=== PATIENT | female | born 1990 | race Two or more races ===

== ENCOUNTER 2018-09-20 06:10 | Emergency (ER) | payer SELFPAY ==
[2018-09-20 08:16] VITALS: BP 120/77
[2018-09-20 08:50] LABS: APPEARANCE,URINE SLIGHTLY-CLOUDY; BILIRUBIN,URINE NEGATIVE (NEGATIVE); COLOR,URINE YELLOW; GLUCOSE, URINE NEGATIVE (NEGATIVE); KETONES,URINE NEGATIVE (NEGATIVE); LEUKOCYTE ESTERASE,URINE NEGATIVE (NEGATIVE); NITRITE,URINE NEGATIVE (NEGATIVE); PROTEIN,URINE NEGATIVE (NEGATIVE); URINE SPECIFIC GRAVITY 1.029; UROBILINOGEN,URINE NEGATIVE mg/dL (<2.0)
[2018-09-20 08:54] LABS: ABSOLUTE BASOPHILS # (AUTO) 0.1 10^3/uL (0.0-0.2); ABSOLUTE EOSINOPHILS # (AUTO) 0.1 10^3/uL (0.0-0.6); ABSOLUTE LYMPHOCYTES (AUTO) 3.1 10^3/uL (0.5-4.7); ABSOLUTE MONOCYTES (AUTO) 0.8 10^3/uL (0.1-1.4); ABSOLUTE NEUT (AUTO) 5.5 10^3/uL (1.7-8.2); BASOPHILS % (AUTO) 0.9 % (0-2); EOSINOPHILS % (AUTO) 0.6 % (0-6); HEMATOCRIT 40.3 % (36.0-47.0); HEMOGLOBIN 13.8 g/dL (12.0-15.5); LYMPHOCYTES % (AUTO) 32.2 % (13-45); MEAN CORPUSCULAR HEMOGLOBIN 29.6 pg (27.0-33.4); MEAN CORPUSCULAR HGB CONC 34.3 g/dL (32.0-36.0); MEAN CORPUSCULAR VOLUME 86 fl (80-97); MONOCYTES % (AUTO) 8.8 % (3-13); PLATELET COUNT 314 10^3/uL (150-450); RED BLOOD COUNT 4.67 10^6/uL (3.72-5.28); RED CELL DISTRIBUTION WIDTH 13.3 % (11.5-14.0); SEGMENTED NEUTROPHILS % (AUTO) 57.5 % (42-78); TOTAL CELLS COUNTED % (AUTO) 100 %; WHITE BLOOD COUNT 9.5 10^3/uL (4.0-10.5)
[2018-09-20 09:12] LABS: ALANINE AMINOTRANSFERASE 21 U/L (9-52); ALBUMIN 4.7 g/dL (3.5-5.0); ALKALINE PHOSPHATASE 71 U/L (38-126); ANION GAP 11 (5-19); ASPARTATE AMINO TRANSFERASE 18 U/L (14-36); BILIRUBIN,DIRECT 0.2 mg/dL (0.0-0.4); BILIRUBIN,TOTAL 0.5 mg/dL (0.2-1.3); BLOOD UREA NITROGEN 15 mg/dL (7-20); CARBON DIOXIDE 26 mmol/L (22-30); CHLORIDE 104 mmol/L (98-107); GLUCOSE 88 mg/dL (75-110); LIPASE 45.7 U/L (23-300); POTASSIUM 3.9 mmol/L (3.6-5.0); TOTAL PROTEIN 7.7 g/dL (6.3-8.2)
[2018-09-20] MEDS ORDERED: LIDOCAINE 2% VISCOUS SOLN 20 ML UDCUP PO ONE (09:45)
[2018-09-20] MEDS ORDERED: MAG HYDROX/AL HYDROX/SIMETH SUSP 30 ML UDCUP PO ONE (09:45)
[2018-09-20] MEDS ORDERED: METOCLOPRAMIDE HCL ORAL SOLN 10 MG/10 ML UDCUP PO ONE (09:45)
--- NOTE | 2018-09-20 09:47 | ER Document Report ---
ED GI/ - General Chief Complaint: Upper Abdominal Pain Stated Complaint: STOMACH PAIN Time Seen by Provider: 09/20/18 08:54 Mode of Arrival: Ambulatory Information source: Patient Notes: Patient is an otherwise healthy 28-year-old female presenting with upper abdominal pain over the last 3 days. She states she has also had occasional nausea with vomiting. She states she is only thrown up one time in the last 24 hours. She reports the pain feels intermittent, cramping and sharp. She states the pain is worsening after she eats. She denies any diarrhea, constipation or urinary symptoms. She denies any fever. TRAVEL OUTSIDE OF THE [place] IN LAST 30 DAYS: No - Related Data Allergies/Adverse Reactions: No Known Allergies Allergy (Verified 09/20/18 06:17) Past Medical History - General Information source: Patient - Social History Smoking Status: Never Smoker Frequency of alcohol use: Occasional Drug Abuse: None Family History: Reviewed & Not Pertinent Patient has suicidal ideation: No Patient has homicidal ideation: No - Medical History Medical History: Negative Renal/ Medical History: Denies: Hx Peritoneal Dialysis Past Surgical History: Reports: Hx Rectal Surgery - Immunizations Hx Diphtheria, Pertussis, Tetanus Vaccination: Yes Review of Systems - Review of Systems Constitutional: No symptoms reported EENT: No symptoms reported Cardiovascular: No symptoms reported Respiratory: No symptoms reported Gastrointestinal: Abdominal pain, Nausea, Vomiting Genitourinary: No symptoms reported Female Genitourinary: No symptoms reported Musculoskeletal: No symptoms reported Skin: No symptoms reported Hematologic/Lymphatic: No symptoms reported Neurological/Psychological: No symptoms reported Physical Exam - Vital signs Vitals: Temp Pulse Resp BP Pulse Ox 98.4 F 77 16 133/77 H 97 09/20/18 06:22 09/20/18 06:22 09/20/18 06:22 09/20/18 06:22 09/20/18 06:22 - Notes Notes: PHYSICAL EXAMINATION: GENERAL: Well-appearing, well-nourished and in no acute distress. HEAD: Atraumatic, normocephalic. EYES: Pupils equal round and reactive to light, extraocular movements intact, conjunctiva are normal. ENT: Nares patent, oropharynx clear without exudates. Moist mucous membranes. NECK: Normal range of motion, supple without lymphadenopathy LUNGS: Breath sounds clear to auscultation bilaterally and equal. No wheezes rales or rhonchi. HEART: Regular rate and rhythm without murmurs ABDOMEN: Soft, nontender, nondistended abdomen. No guarding, no rebound. No masses appreciated. Female : deferred Musculoskeletal: Normal range of motion, no pitting or edema. No cyanosis. NEUROLOGICAL: Cranial nerves grossly intact. Normal speech, normal gait. Normal sensory, motor exams PSYCH: Normal mood, normal affect. SKIN: Warm, Dry, normal turgor, no rashes or lesions noted. Course - Re-evaluation Re-evalutation: Labs as recorded are unremarkable. Normal CBC, CMP and urinalysis. Right upper quadrant ultrasound shows a fatty liver but normal gallbladder. Most of her pain is located in the epigastric area. Likely gastritis due to routine consumption of what patient reports is very spicy food. Patient will be started on medications for her symptoms. She will follow-up with her primary care provider. ED return precautions were discussed and patient and spouse verbalized understanding and agreement with plan. - Vital Signs Vital signs: Temp Pulse Resp BP Pulse Ox 98.4 F 66 16 120/77 100 09/20/18 08:14 09/20/18 08:14 09/20/18 08:14 09/20/18 08:14 09/20/18 08:14 - Laboratory Result Diagrams: 09/20/18 08:45 09/20/18 08:45 Discharge - Discharge Clinical Impression: Right upper quadrant abdominal pain Gastritis Qualifiers: Gastritis type: unspecified gastritis Chronicity: acute Gastritis bleeding: without bleeding Qualified Code(s): K29.00 - Acute gastritis without bleeding Condition: Stable Disposition: HOME, SELF-CARE Additional Instructions: Your symptoms appear to be most consistent with stomach or upper intestinal irritation. Please begin taking famotidine 40 mg in the morning and 40 mg at night. This medicine can be purchased directly [id number]. You may also take medicine such as Pepto-Bismol or Tums to assist with your pain. Please return to emergency department immediately if you have worsening of your pain, shortness of breath, vomiting, become unable to exert yourself due to pain or di fficulty breathing, you pass out, or have any pain that radiates into your arms, jaw, or back. Please also return if you have any additional symptoms that are concerning to you. As we have discussed, the most important thing is lifestyle changes. You need to avoid smoking, sodas, tea, coffee, alcohol, spicy foods, and acidic foods such as citrus fruits, tomato based products, berries, and most fruit juices. Your work-up today was unremarkable to include normal CBC, CMP and urinalysis. The ultrasound of your right upper quadrant did show a fatty infiltration of the liver but otherwise normal exam. No gallstones were noted. I have enclosed a copy of your ultrasound report so that you can follow-up with your primary care provider. Once you are enrolled in [facility] please call [facility] to find out your PCP is schedule an appointment with them. Prescriptions: Famotidine 40 mg PO BID #40 tablet Sucralfate [Carafate 1 gm Tablet] 1 gm PO ACHS #60 tablet
--- NOTE | 2018-09-20 10:11 | RADIOLOGY REPORT (SQ) ---
EXAM DESCRIPTION: U/S ABDOMEN LIMITED W/O DOP COMPLETED DATE/TIME: 09/20/2018 10:01 am REASON FOR STUDY: RUQ pain COMPARISON: None. TECHNIQUE: Dynamic and static grayscale images acquired of the abdomen and recorded on PACS. Additio nal selected color Doppler and spectral images recorded. LIMITATIONS: None. FINDINGS: PANCREAS: No masses. No peripancreatic edema or fluid collections. LIVER: Echotexture is coarse with increased echogenicity consistent with fatty infiltration. LIVER VASCULATURE: Normal directional flow of the main portal vein and hepatic veins. GALLBLADDER: No stones. Normal wall thickness. No pericholecystic fluid. ULTRASOUND-DETECTED KNOWLES'S SIGN: Negative. INTRAHEPATIC DUCTS AND COMMON DUCT: CBD and intrahepatic ducts normal caliber. No filling defects. INFERIOR VENA CAVA: Normal flow. AORTA: No aneurysm. RIGHT KIDNEY: Normal size. Normal echogenicity. No solid or suspicious masses. No hydronephros is. No calcifications. PERITONEAL AND RIGHT PLEURAL SPACE: No ascites or effusions. OTHER: No other significant finding. IMPRESSION: FATTY INFILTRATION OF THE LIVER. OTHERWISE NORMAL RIGHT UPPER QUADRANT ULTRASOUND. TECHNICAL DOCUMENTATION: JOB ID: [id number] [employer]- All Rights Reserved Reading location - IP/workstation name: [email or web address]
== END 2018-09-20 11:18 | disposition home or self-care (01) ==
LOC: ER 06:10
DX: K29.00 Acute gastritis without bleeding (principal); R10.11 Right upper quadrant pain; R11.2 Nausea with vomiting, unspecified
CPT/HCPCS: 99284; 36415; 83690; 85025; 81025; 80053; 81001; 76705; J3490

== ENCOUNTER 2019-07-06 21:19 | Emergency (ER) | payer OTHER ==
--- NOTE | 2019-07-06 21:38 | ER Document Report ---
ED Medical Screen (RME) - General Chief Complaint: Breathing Difficulty Stated Complaint: DIFFICULTY BREATHING Time Seen by Provider: 07/06/19 21:34 TRAVEL OUTSIDE OF THE [place] IN LAST 30 DAYS: No - HPI Notes: 07/06/19 21:37 Patient is a 29-year-old female with a history of hysterectomy presents complaining of feeling short of breath throughout the day today with activity. She has not had any recent illness. She is able to eat and drink without difficulty. She is urinating normally and having normal bowel movements. No fever, chest pain, abdominal pain, vomiting/diarrhea. No cough or congestion. Denies any prolonged immobilization, distance travel, recent surgery/trauma, personal cancer history, hormone use, smoking, or previous DVT/PE. I have treated and performed a rapid initial assessment of this patient. A comprehensive ED assessment and evaluation of the patient, analysis of test results and completion of medical decision making process will be conducted by additional ED providers. PHYSICAL EXAMINATION: GENERAL: Well-appearing, well-nourished and in no acute distress. A&Ox4. Answers questions appropriately. LUNGS: Breath sounds clear to auscultation bilaterally and equal. No wheezes rales or rhonchi. HEART: Regular rate and rhythm without murmurs, rubs, gallops. Extremities: No cyanosis, clubbing, or edema b/l. Maria Luisa negative bilaterally. No lower extremity asymmetry. NEUROLOGICAL: Normal speech, normal gait. PSYCH: Normal mood, normal affect. - Related Data Allergies/Adverse Reactions: No Known Allergies Allergy (Verified 07/06/19 21:34) Past Medical History Renal/ Medical History: Denies: Hx Peritoneal Dialysis Past Surgical History: Reports: Hx Rectal Surgery - Immunizations Hx Diphtheria, Pertussis, Tetanus Vaccination: Yes Physical Exam - Vital signs Vitals: Temp Pulse Resp BP Pulse Ox 97.9 F 88 20 132/84 H 99 07/06/19 21:24 07/06/19 21:24 07/06/19 21:24 07/06/19 21:24 07/06/19 21:24 Course - Vital Signs Vital signs: Temp Pulse Resp BP Pulse Ox 97.9 F 88 20 132/84 H 99 07/06/19 21:24 07/06/19 21:24 07/06/19 21:24 07/06/19 21:24 07/06/19 21:24
[2019-07-06 22:00] LABS: ABSOLUTE BASOPHILS # (AUTO) 0.1 10^3/uL (0.0-0.2); ABSOLUTE EOSINOPHILS # (AUTO) 0.1 10^3/uL (0.0-0.6); ABSOLUTE LYMPHOCYTES (AUTO) 3.5 10^3/uL (0.5-4.7); ABSOLUTE NEUT (AUTO) 7.9 10^3/uL (1.7-8.2); BASOPHILS % (AUTO) 0.6 % (0-2); EOSINOPHILS % (AUTO) 0.8 % (0-6); HEMATOCRIT 38.3 % (36.0-47.0); HEMOGLOBIN 12.9 g/dL (12.0-15.5); LYMPHOCYTES % (AUTO) 27.7 % (13-45); MEAN CORPUSCULAR HEMOGLOBIN 29.2 pg (27.0-33.4); MEAN CORPUSCULAR HGB CONC 33.7 g/dL (32.0-36.0); MEAN CORPUSCULAR VOLUME 87 fl (80-97); PLATELET COUNT 328 10^3/uL (150-450); RED BLOOD COUNT 4.43 10^6/uL (3.72-5.28); RED CELL DISTRIBUTION WIDTH 13.5 % (11.5-14.0); SEGMENTED NEUTROPHILS % (AUTO) 62.9 % (42-78); TOTAL CELLS COUNTED % (AUTO) 100 %; WHITE BLOOD COUNT 12.6 10^3/uL (4.0-10.5)
[2019-07-06 22:18] LABS: ALBUMIN 4.5 g/dL (3.5-5.0); ALKALINE PHOSPHATASE 69 U/L (38-126); ANION GAP 9 (5-19); ASPARTATE AMINO TRANSFERASE 23 U/L (14-36); BILIRUBIN,TOTAL 0.2 mg/dL (0.2-1.3); BLOOD UREA NITROGEN 17 mg/dL (7-20); CALCIUM 9.4 mg/dL (8.4-10.2); CARBON DIOXIDE 26 mmol/L (22-30); CHLORIDE 103 mmol/L (98-107); GLUCOSE 73 mg/dL (75-110); POTASSIUM 3.9 mmol/L (3.6-5.0); TOTAL PROTEIN 7.7 g/dL (6.3-8.2)
--- NOTE | 2019-07-06 22:53 | RADIOLOGY REPORT (SQ) ---
EXAM DESCRIPTION: XR CHEST 2 VIEWS COMPLETED DATE/TME: 07/06/2019 21:38 CLINICAL HISTORY: 29 years, Female, sob EXAM DESCRIPTION: CLINICAL HISTORY: sob COMPARISON: None. FINDINGS: Two views of the chest are submitted. There is poorly defined mild consolidation in the right middle lobe. There is atelectasis at the left lung base. Cardiac silhouette appears normal. No other focal parenchymal or pleural disease. There is no significant pulmonary vascular engorgement. IMPRESSION: Right middle lobe mild consolidation.
[2019-07-07] MEDS ORDERED: AZITHROMYCIN 250 MG TABLET PO ONE (01:17)
--- NOTE | 2019-07-07 01:29 | ER Document Report ---
Entered by DAYRON ONTIVEROS SCRIBE 07/07/19 0104 Acting as scribe for:IRVIN ALMAGUER IV, MD ED General - General Chief Complaint: Shortness Of Breath Stated Complaint: DIFFICULTY BREATHING Time Seen by Provider: 07/06/19 21:34 Primary Care Provider: WILTON FOWLER MD [HONORARY] - Follow up as needed Mode of Arrival: Ambulatory Information source: Patient, Friend Notes: This 29 year old female presents to the ED today with complaints of dyspnea and shortness of breath with exertion for the past x6 months, but was worse today. Patient reports that she has mild cough that is on and off. Friend at bedside states that she noticed that the patient would run out of breath while talking, so she decided to bring her to the ED. Patient states that she moved into her current apartment x1 year ago and there is "severe mold" in all of the b athrooms, stating that this may be the cause of her symptoms. Patient denies fever, chest pain, abdominal pain, nausea, vomiting, or diarrhea. TRAVEL OUTSIDE OF THE [place] IN LAST 30 DAYS: No - Related Data Allergies/Adverse Reactions: No Known Allergies Allergy (Verified 07/06/19 21:34) Past Medical History - General Information source: Patient, Friend - Social History Smoking Status: Never Smoker Cigarette use (# per day): No Chew tobacco use (# tins/day): No Smoking Education Provided: No Frequency of alcohol use: Social Drug Abuse: None Family History: Reviewed & Not Pertinent Patient has suicidal ideation: No Patient has homicidal ideation: No Past Surgical History: Reports: Hx Hysterectomy - Immunizations Hx Diphtheria, Pertussis, Tetanus Vaccination: Yes Review of Systems - Review of Systems Constitutional: See HPI. denies: Fever EENT: No symptoms reported Cardiovascular: See HPI, Dyspnea. denies: Chest pain Respiratory: See HPI, Cough, Short of breath Gastrointestinal: See HPI. denies: Abdominal pain, Diarrhea, Nausea, Vomiting Genitourinary: No symptoms reported Female Genitourinary: No symptoms reported Musculoskeletal: No symptoms reported Skin: No symptoms reported Hematologic/Lymphatic: No symptoms reported Neurological/Psychological: No symptoms reported -: Yes All other systems reviewed and negative Physical Exam - Vital signs Vitals: Temp Pulse Resp BP Pulse Ox 97.9 F 88 20 132/84 H 99 07/06/19 21:24 07/06/19 21:24 07/06/19 21:24 07/06/19 21:24 07/06/19 21:24 - General General appearance: Alert - HEENT Head: Normocephalic, Atraumatic Eyes: Normal Pupils: PERRL - Respiratory Respiratory status: No respiratory distress Chest status: Nontender Breath sounds: Normal Chest palpation: Normal - Cardiovascular Rhythm: Regular Heart sounds: Normal auscultation Murmur: No Friction rub: No Gallop: None auscultated - Abdominal Inspection: Normal Distension: No distension Bowel sounds: Normal Tenderness: Nontender - Abdomen soft Organomegaly: No organomegaly - Back Back: Normal, Nontender - Extremities General upper extremity: Normal inspection General lower extremity: Normal inspection - Neurological Neuro grossly intact: Yes - Psychological Associated symptoms: Normal affect, Normal mood - Skin Skin Temperature: Warm Skin Moisture: Dry Skin Color: Normal Course - Re-evaluation Re-evalutation: 07/07/19 01:17 Findings of ED MSE discussed with patient and patient's friend present in the room. All questions were answered prior to discharge. Emergency signs and symptoms, reasons to return to the emergency department discussed with patient. - Vital Signs Vital signs: Temp Pulse Resp BP Pulse Ox 98.2 F 88 18 106/65 99 07/07/19 01:43 07/06/19 21:24 07/07/19 01:01 07/07/19 01:01 07/07/19 01:01 - Laboratory Result Diagrams: 07/06/19 21:45 07/06/19 21:45 Laboratory results interpreted by me: 07/06/19 07/06/19 21:45 21:45 WBC 12.6 H Glucose 73 L - Diagnostic Test Radiology reviewed: Reports reviewed - EKG Interpretation by Me Additional EKG results interpreted by me: 07/07/19 01:24 EKG obtained on 07/06/2019 at 2130 hrs. was interpreted by this MD. Findings: Sinus rhythm, rate 82, normal axis, P waves proceed QRS complexes, QRS complexes appear narrow, there are no obvious visible patterns of ST segment elevation or depression to suggest acute myocardial ischemia or infarction. Impression normal sinus rhythm with nonspecific ST segments. Discharge - Discharge Clinical Impression: Right middle lobe pneumonia Qualifiers: Pneumonia type: due to unspecified organism Qualified Code(s): J18.9 - Pneumonia, unspecified organism Condition: Good Disposition: HOME, SELF-CARE Additional Instructions: Return to the Emergency Department without delay if any worse. HOME CARE INSTRUCTIONS & INFORMATION: Thank you for choosing us for your medical needs. We hope you're satisfied with the care you received. After you leave, you must properly care for your problem and, at the same time, observe its progress. Any condition can change. Some illnesses can change rapidly over hours or days. If your condition worsens, return to the Emergency Department or see your physician promptly. ABOUT YOUR X-RAYS AND EKG'S: If you had an EKG or X-rays taken, they have been read by the Emergency Physician. The X-rays and EKG's will also be read by a Radiologist or Circuit Breaker Mechanic within 24 hours. If discrepancies are noted, you will be notified by telephone. Please be certain the ED has a correct telephone number & address where you can be reached. Also, realize that some fractures or abnormalities do not show up on initial X-rays. If your symptoms continue, see your physician. ABOUT YOUR LABORATORY TEST: If you had laboratory tests, the results have been reviewed by the Emergency Physician. Some test results (for example cultures) may not be available for several days. You will be contacted if any test result shows you need additional treatment. Please be certain the ED has a correct telephone number and address where you can be reached. ABOUT YOUR MEDICATIONS: You will receive instructions on how to take your medicine on the prescription label you receive. Additional information may be provided by the Pharmacy. If you have questions afterwards, call the ED for clarification or further instructions. Some prescribed medications may cause drowsiness. Do not perform tasks such as driving a car or operating machinery without consulting your Pharmacist. If you feel you need a refill of pain medication, your condition will need re-evaluation. Please do not call for a refill of any medication. ABOUT YOUR SIGNATURE: Signature of this document acknowledges to followin. Understanding that you received emergency treatment and that you may be released before al medical problems are known or treated. Please be certain the ED has a correct phone number & address where you can be reached. 2. Acknowledgement that you will arrange for follow-up care as recommended. 3. Authorization for the Emergency Physician to provide information to your f ollow-up Physician in order to maximize your care. AT ANY TIME, IF YOUR SYMPTOMS CHANGE SIGNIFICANTLY OR WORSEN OR YOU DEVELOP NEW SYMPTOMS, RETURN TO THE EMERGENCY DEPARTMENT IMMEDIATELY FOR RE-EVALUATION. OUR GOAL IS TO PROVIDE EXCELLENT MEDICAL CARE! WE HOPE THAT WE HAVE MET YOUR EXPECTATIONS DURING YOUR EMERGENCY DEPARTMENT VISIT AND THAT YOU FEEL YOU HAVE RECEIVED EXCELLENT CARE! Pneumonia Your examination indicates that you have pneumonia. This is an infection of the lung tissue, usually caused by bacteria or a virus. Symptoms include cough, fever, shaking chills, chest pain, shortness of breath, and coughing up bloody sputum. Treatment for bacterial pneumonia includes rest, antibiotics for 10 to 14 days, increasing your clear liquid intake, a cool mist humidifier at your bedside, and fever medication. Often, a repeat chest X-ray is performed in a few weeks--even if you feel better--to ascertain whether the infection has completely resolved and no underlying lung problem is present. You should call the physician if you develop persistent vomiting, high fever that does not respond to fever medication, increasing shortness of breath, confusion, or lethargy. Also, failure to improve within two to three days is an indication for re-examination. Prescriptions: Azithromycin [Zithromax 250 mg Tablet] 250 mg PO DAILY 4 Days #4 tablet Forms: Return to Work Referrals: WILTON FOWLER MD [HONORARY] - Follow up as needed I personally performed the services described in the documentation, reviewed and edited the documentation which was dictated to the scribe in my presence, and it accurately records my words and actions.
[2019-07-07 01:44] VITALS: BP 106/65
--- NOTE | 2019-07-07 06:26 | EKG REPORT ---
SEVERITY:- NORMAL ECG - SINUS RHYTHM : Confirmed by: Danyel Sierra MD 07-Jul-2019 06:25:33
== END 2019-07-07 01:44 | disposition home or self-care (01) ==
LOC: ER 21:19
DX: J18.9 Pneumonia, unspecified organism (principal); R06.02 Shortness of breath; R05 Cough; Z77.120 Contact with and (suspected) exposure to mold (toxic)
CPT/HCPCS: 36415; 71046; 80053; 85025; 93005; 93010; 99285

== ENCOUNTER 2019-10-31 11:26 | Emergency (ER) | payer OTHER ==
[2019-10-31 13:10] LABS: ABSOLUTE BASOPHILS # (AUTO) 0.1 10^3/uL (0.0-0.2); ABSOLUTE EOSINOPHILS # (AUTO) 0.1 10^3/uL (0.0-0.6); ABSOLUTE LYMPHOCYTES (AUTO) 2.6 10^3/uL (0.5-4.7); ABSOLUTE MONOCYTES (AUTO) 0.9 10^3/uL (0.1-1.4); ABSOLUTE NEUT (AUTO) 4.7 10^3/uL (1.7-8.2); BASOPHILS % (AUTO) 0.9 % (0-2); EOSINOPHILS % (AUTO) 1.1 % (0-6); HEMATOCRIT 37.9 % (36.0-47.0); HEMOGLOBIN 12.9 g/dL (12.0-15.5); LYMPHOCYTES % (AUTO) 31.3 % (13-45); MEAN CORPUSCULAR HEMOGLOBIN 29.4 pg (27.0-33.4); MEAN CORPUSCULAR VOLUME 86 fl (80-97); MONOCYTES % (AUTO) 10.3 % (3-13); PLATELET COUNT 329 10^3/uL (150-450); RED BLOOD COUNT 4.39 10^6/uL (3.72-5.28); RED CELL DISTRIBUTION WIDTH 13.1 % (11.5-14.0); SEGMENTED NEUTROPHILS % (AUTO) 56.4 % (42-78); TOTAL CELLS COUNTED % (AUTO) 100 %; WHITE BLOOD COUNT 8.3 10^3/uL (4.0-10.5)
[2019-10-31 13:28] LABS: ALBUMIN 4.4 g/dL (3.5-5.0); ALKALINE PHOSPHATASE 74 U/L (38-126); ANION GAP 6 (5-19); ASPARTATE AMINO TRANSFERASE 23 U/L (14-36); BILIRUBIN,TOTAL 0.3 mg/dL (0.2-1.3); BLOOD UREA NITROGEN 14 mg/dL (7-20); CALCIUM 9.4 mg/dL (8.4-10.2); CARBON DIOXIDE 27 mmol/L (22-30); CHLORIDE 105 mmol/L (98-107); GLUCOSE 91 mg/dL (75-110); POTASSIUM 4.1 mmol/L (3.6-5.0); TOTAL PROTEIN 7.7 g/dL (6.3-8.2)
--- NOTE | 2019-10-31 13:41 | RADIOLOGY REPORT (SQ) ---
EXAM DESCRIPTION: CHEST SINGLE VIEW IMAGES COMPLETED DATE/TIME: 10/31/2019 1:22 pm REASON FOR STUDY: SOB COMPARISON: 07/06/2019 EXAM PARAMETERS: NUMBER OF VIEWS: One view. TECHNIQUE: Single frontal radiographic view of the chest acquired. RADIATION DOSE: NA LIMITATIONS: None. FINDINGS: LUNGS AND PLEURA: No opacities, masses or pneumothorax. No pleural effusion. MEDIASTINUM AND HILAR STRUCTURES: No masses. Contour normal. HEART AND VASCULAR STRUCTURES: Heart normal in size. Normal vasculature. BONES: No acute findings. HARDWARE: None in the chest. OTHER: No other significant finding. IMPRESSION: NO ACUTE RADIOGRAPHIC FINDING IN THE CHEST. TECHNICAL DOCUMENTATION: JOB ID: [id number] [employer]- All Rights Reserved Reading location - IP/workstation name: [email or web address]
--- NOTE | 2019-10-31 14:29 | ER Document Report ---
ED Respiratory Problem - General Chief Complaint: Shortness Of Breath Stated Complaint: SHORTNESS OF BREATH/LIGHTHEADED Time Seen by Provider: 10/31/19 13:10 Notes: CHIEF COMPLAINT: Multiple complaints HPI: 29-year-old female presenting to the emergency department complaining of exertional dyspnea over the last 3 months. Patient recently traveled to [place] with a friend and to her the state. States that occasionally she will hear herself wheeze, occasionally she will have coughing episodes. Feels like if she walks any distance she becomes short of breath. No cardiac history that is known. Has not seen a primary care provider for this. States she was diagnosed in June with pneumonia on x-ray and was treated with antibiotics did feel slightly better afterwards. Patient has not had a fever. ROS: See HPI - all other systems were reviewed and are otherwise negative Constitutional: no fever Eyes: no drainage, no blurred vision ENT: no runny nose, no sore throat Cardiovascular: no chest pain Resp: + SOB, + cough GI: no vomiting, no diarrhea, no abdominal pain : no dysuria Integumentary: no rash Allergy: no hives Musculoskeletal: no extremity pain or swelling Neurological: no numbness/tingling, no weakness MEDICATIONS: I agree with the patient medications as charted by the RN. ALLERGIES: I agree with the allergies as charted by the RN. PAST MEDICAL HISTORY/PAST SURGICAL HISTORY: Reviewed and agree as charted by RN. SOCIAL HISTORY: Reviewed and agree as charted by RN. FAMILY HISTORY: No significant familial comorbid conditions directly related to patient complaint EXAM: Reviewed vital signs as charted by RN. CONSTITUTIONAL: Alert and oriented and responds appropriately to questions. Well-appearing; well-nourished HEAD: Normocephalic; atraumatic EYES: PERRL; Conjunctivae clear, sclerae non-icteric ENT: normal nose; no rhinorrhea; moist mucous membranes; pharynx without lesions noted, no uvula edema or deviation, no tonsillar hypertrophy, phonation normal NECK: Supple without meningismus; non-tender; no cervical lymphadenopathy, no masses CARD: RRR; no murmurs, no clicks, no rubs, no gallops; symmetric distal pulses RESP: Normal chest excursion without splinting or tachypnea; breath sounds clear and equal bilaterally; no wheezes, no rhonchi, no rales, pulse oximetry 98% on room air not hypoxic ABD/GI: Normal bowel sounds; non-distended; soft, non-tender, no rebound, no guarding; no palpable organomegaly or masses. BACK: The back appears normal and is non-tender to palpation, there is no CVA tenderness EXT: Normal ROM in all joints; non-tender to palpation; no cyanosis, no effusions, no edema SKIN: Normal color for age and race; warm; dry; good turgor; no acute lesions noted NEURO: Moves all extremities equally; Motor and sensory function intact PSYCH: The patient's mood and manner are appropriate. Grooming and personal hygiene are appropriate. MDM: 29-year-old female presenting to the emergency department with exertional dyspnea over the last 3 months. States she was diagnosed with pneumonia 3 months ago and symptoms began after that occasionally with coughing and wh eezing. She is not dyspneic on exam here. She is not hypoxic, she is not tachypneic. Chest x-ray does not show evidence of pneumonia, she is not actively wheezing. Her d-dimer is negative her cardiac screening labs are negative. It is likely the patient may have some bronchospasm still, she did recently travel throughout the [facility] we will COVID test her today will prescribe albuterol inhaler, discharge to follow-up with a PCP for evaluation TRAVEL OUTSIDE OF THE [place] IN LAST 30 DAYS: No - Related Data Allergies/Adverse Reactions: No Known Allergies Allergy (Verified 07/06/19 21:34) Past Medical History - Social History Smoking Status: Never Smoker Family History: Reviewed & Not Pertinent Renal/ Medical History: Denies: Hx Peritoneal Dialysis Past Surgical History: Reports: Hx Hysterectomy, Hx Rectal Surgery - Immunizations Hx Diphtheria, Pertussis, Tetanus Vaccination: Yes Physical Exam - Vital signs Vitals: Temp Pulse Resp BP Pulse Ox 98.6 F 73 16 131/79 H 98 10/31/19 11:49 10/31/19 11:49 10/31/19 11:49 10/31/19 11:49 10/31/19 11:49 Course - Vital Signs Vital signs: Temp Pulse Resp BP Pulse Ox 98.6 F 73 16 131/79 H 98 10/31/19 11:49 10/31/19 11:49 10/31/19 11:49 10/31/19 11:49 10/31/19 11:49 - Laboratory Result Diagrams: 10/31/19 12:32 10/31/19 12:32 Discharge - Discharge Clinical Impression: Exertional dyspnea, Person under investigation for COVID-19 Condition: Stable Disposition: HOME, SELF-CARE Additional Instructions: Your chest x-ray, lab work today did not show any acute findings. You are considered a person under investigation at this time self quarantine at home for the next 14 days or until you have a negative cover test. Make sure you follow- up with a primary care provider given the length of time of your symptoms. Your chest x-ray did not show evidence of pneumonia today if you notice yourself wheezing or short of breath use the albuterol inhaler 2 puffs every 4 hours. Return for any concerns Prescriptions: Albuterol Sulfate [Proair HFA Inhalation Aerosol 8.5 gm MDI] 2 puff IH Q4H PRN #1 mdi PRN Reason: Referrals: LEA ARNOLD DO [NO LOCAL MD] - Follow up as needed
[2019-10-31 15:13] VITALS: BP 126/72
[2019-10-31 15:27] LABS: APPEARANCE,URINE CLEAR; BILIRUBIN,URINE NEGATIVE (NEGATIVE); COLOR,URINE YELLOW; GLUCOSE, URINE NEGATIVE (NEGATIVE); KETONES,URINE NEGATIVE (NEGATIVE); LEUKOCYTE ESTERASE,URINE NEGATIVE (NEGATIVE); NITRITE,URINE NEGATIVE (NEGATIVE); PROTEIN,URINE NEGATIVE (NEGATIVE); URINE SPECIFIC GRAVITY 1.021; UROBILINOGEN,URINE NEGATIVE mg/dL (<2.0)
== END 2019-10-31 15:12 | disposition home or self-care (01) ==
LOC: ER 11:26
DX: R06.02 Shortness of breath (principal); R05 Cough; Z20.828 Contact with and (suspected) exposure to other viral communicable diseases
CPT/HCPCS: 99285; 36415; 84443; 84703; 85025; 87635; 80053; 81001; 84484; 85379; 71045; C9803

== ENCOUNTER 2020-01-06 16:35 | Observation (INO) | payer OTHER ==
[2020-01-06] MEDS ORDERED: ONDANSETRON 4 MG TAB.RAPDIS PO ONE (16:56)
--- NOTE | 2020-01-06 16:58 | ER Document Report ---
ED Medical Screen (RME) - General Chief Complaint: Pelvic Pain Stated Complaint: LEFT PELVIC AREA PAIN Time Seen by Provider: 01/06/20 16:45 Mode of Arrival: Ambulatory Information source: Patient TRAVEL OUTSIDE OF THE [place] 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 Patient denies any vaginal pain or vaginal discharge. Reports she has had some nausea and diarrhea that started today. Tried some ibuprofen without relief. Patient states she believes she still has her cervix, she knows she has her fallopian tubes and her ovaries just missing her uterus. Patient has not followed with a FINANCIAL REPORTING ACCOUNTANT in years. Last bowel movement was yesterday. Patient is sexually active is not on any control. States she has the pain sometimes. Is unsure of her last menstrual cycle because she does not have a vaginal bleed due to her mllerian agenesis. Denies any fevers chills, chest pain, shortness of breath, lower back pain I have greeted and performed a rapid initial assessment of this patient. A comprehensive ED assessment and evaluation of the patient, analysis of test results and completion of the medical decision making process will be conducted by additional ED providers. PHYSICAL EXAMINATION: GENERAL: Well-appearing, well-nourished and in no acute distress. CV: s1, s2 regular LUNGS: No respiratory distress abd: left pelvic pain on palpation Musculoskeletal: Normal range of motion NEUROLOGICAL: Normal speech, normal gait. SKIN: Warm, Dry, normal turgor, no rashes or lesions noted.. - Related Data Allergies/Adverse Reactions: No Known Allergies Allergy (Verified 07/06/19 21:34) Past Medical History Renal/ Medical History: Denies: Hx Peritoneal Dialysis Past Surgical History: Reports: Hx Hysterectomy, Hx Rectal Surgery - Immunizations Hx Diphtheria, Pertussis, Tetanus Vaccination: Yes Physical Exam - Vital signs Vitals: Temp Pulse Resp BP Pulse Ox 98.9 F 88 20 132/75 H 96 01/06/20 16:39 01/06/20 16:39 01/06/20 16:39 01/06/20 16:39 01/06/20 16:39 Course - Vital Signs Vital signs: Temp Pulse Resp BP Pulse Ox 98.9 F 88 20 132/75 H 96 01/06/20 16:39 01/06/20 16:39 01/06/20 16:39 01/06/20 16:39 01/06/20 16:39
[2020-01-06 17:30] LABS: ABSOLUTE BASOPHILS # (AUTO) 0.1 10^3/uL (0.0-0.2); ABSOLUTE EOSINOPHILS # (AUTO) 0.2 10^3/uL (0.0-0.6); ABSOLUTE LYMPHOCYTES (AUTO) 2.9 10^3/uL (0.5-4.7); ABSOLUTE MONOCYTES (AUTO) 0.8 10^3/uL (0.1-1.4); ABSOLUTE NEUT (AUTO) 5.7 10^3/uL (1.7-8.2); BASOPHILS % (AUTO) 0.9 % (0-2); EOSINOPHILS % (AUTO) 1.7 % (0-6); HEMOGLOBIN 12.5 g/dL (12.0-15.5); LYMPHOCYTES % (AUTO) 29.6 % (13-45); MEAN CORPUSCULAR HEMOGLOBIN 30.3 pg (27.0-33.4); MEAN CORPUSCULAR HGB CONC 35.7 g/dL (32.0-36.0); MEAN CORPUSCULAR VOLUME 85 fl (80-97); MONOCYTES % (AUTO) 8.7 % (3-13); PLATELET COUNT 307 10^3/uL (150-450); RED BLOOD COUNT 4.12 10^6/uL (3.72-5.28); RED CELL DISTRIBUTION WIDTH 13.5 % (11.5-14.0); SEGMENTED NEUTROPHILS % (AUTO) 59.1 % (42-78); TOTAL CELLS COUNTED % (AUTO) 100 %; WHITE BLOOD COUNT 9.7 10^3/uL (4.0-10.5)
[2020-01-06 17:44] LABS: APPEARANCE,URINE SLIGHTLY-CLOUDY; BILIRUBIN,URINE NEGATIVE (NEGATIVE); COLOR,URINE YELLOW; GLUCOSE, URINE NEGATIVE (NEGATIVE); KETONES,URINE TRACE mg/dL (NEGATIVE); LEUKOCYTE ESTERASE,URINE NEGATIVE (NEGATIVE); NITRITE,URINE NEGATIVE (NEGATIVE); PROTEIN,URINE 100 mg/dL (NEGATIVE); URINE SPECIFIC GRAVITY 1.042
[2020-01-06 17:49] LABS: ALBUMIN 4.3 g/dL (3.5-5.0); ALKALINE PHOSPHATASE 75 U/L (38-126); ANION GAP 5 (5-19); ASPARTATE AMINO TRANSFERASE 20 U/L (14-36); BILIRUBIN,DIRECT 0.2 mg/dL (0.0-0.4); BILIRUBIN,TOTAL 0.4 mg/dL (0.2-1.3); BLOOD UREA NITROGEN 14 mg/dL (7-20); CALCIUM 9.3 mg/dL (8.4-10.2); CARBON DIOXIDE 27 mmol/L (22-30); CHLORIDE 104 mmol/L (98-107); GLUCOSE 123 mg/dL (75-110); POTASSIUM 4.2 mmol/L (3.6-5.0); TOTAL PROTEIN 7.2 g/dL (6.3-8.2)
--- NOTE | 2020-01-06 18:09 | RADIOLOGY REPORT (SQ) ---
EXAM DESCRIPTION: U/S NON OB PEL W/DOPPLER IMAGES COMPLETED DATE/TIME: 01/06/2020 5:44 pm REASON FOR STUDY: L pelvic pain x3 days, born w/o uterus,-vagbleed COMPARISON: None. TECHNIQUE: Dynamic and static grayscale images acquired of the pelvis via transabdominal approach an d recorded on PACS. Additional selected color Doppler and spectral images recorded. LIMITATIONS: None. FINDINGS: UTERUS: The patient has a history of Mullerian agenesis(the patient was born without the uterus). CERVIX: The cervix measures 2.3 cm in length. RIGHT OVARY AND DOPPLER: The right ovary measures 3.0 x 2.3 x 2.0 cm. Normal size. No worrisome mas ses. Normal arterial vascular flow without evidence for torsion. LEFT OVARY AND DOPPLER: The left ovary is not visualized sonographically. A complex 9.6 x 4.1 x 3.0 cm mass in the left adnexal region with blood flow demonstrated. FREE FLUID: None noted. OTHER: No other significant finding. IMPRESSION: 1. The patient has a known history of Muellerian agenesis. 2. The left ovary is not visualized sonographically. A complex large mass in the left adnexal regio n as above. Differential diagnosis includes dilated complex hydrosalpinx, possible abscess, as well as other etiologies. Correlation with AUDIO ENGINEER consult suggested. COMMENT: 1. The results of this examination were discussed with the emergency department provider o n 01/06/2020 at 18:01 hours. TECHNICAL DOCUMENTATION: JOB ID: [id number] [employer]- All Rights Reserved Rev-09/14 Reading location - IP/workstation name: [email or web address]
--- NOTE | 2020-01-06 18:25 | ER Document Report ---
ED GI/ - General Mode of Arrival: Ambulatory Information source: Patient TRAVEL OUTSIDE OF THE [place] IN LAST 30 DAYS: No - HPI Patient complains to provider of: Pelvic pain. No: Vaginal bleeding, Vaginal discharge Onset: Other - 3 days Timing/Duration: Persistent Quality of pain: Pressure Pain Level: 4 Location: LLQ, Pelvis Vaginal bleeding (Compared to normal period): None Associated symptoms: denies: Dysuria, Fever, Nausea, Urinary hesitancy, Urinary frequency, Urinary retention, Urinary urgency, Vaginal discharge Exacerbated by: Movement Relieved by: Remaining still Similar symptoms previously: No Recently seen / treated by doctor: No <DARA EMANUEL - Last Filed: 01/06/20 19:58> <MARIA INES BARBA - Last Filed: 01/07/20 01:48> - General Chief Complaint: Pelvic Pain Stated Complaint: LEFT PELVIC AREA PAIN Time Seen by Provider: 01/06/20 16:45 Primary Care Provider: [facility] [Provider Group] - Follow up tomorrow CASH GARZA MD [ACTIVE STAFF] - Follow up tomorrow Notes: Patient presents with a 3-day history of left lower pelvic pain. Patient reports pain is worse with any movement. Patient denies any vaginal bleeding or discharge. Patient denies any nausea vomiting or diarrhea. Patient denies any urinary symptoms or fever. 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 Denies: Hx Peritoneal Dialysis Past Surgical History: Reports: Hx Hysterectomy, Hx Rectal Surgery - Immunizations Hx Diphtheria, Pertussis, Tetanus Vaccination: Yes <DARA EMANUEL - Last Filed: 01/06/20 19:58> Review of Systems - Review of Systems Constitutional: No symptoms reported. denies: Fever, Recent illness EENT: No symptoms reported Cardiovascular: No symptoms reported. denies: Chest pain Respiratory: No symptoms reported. denies: Cough, Short of breath Gastrointestinal: Abdominal pain. denies: Diarrhea, Nausea, Vomiting Genitourinary: No symptoms reported. denies: Dysuria, Flank pain Female Genitourinary: No symptoms reported. denies: Vaginal discharge, Vaginal bleeding Musculoskeletal: No symptoms reported. denies: Back pain Skin: No symptoms reported Hematologic/Lymphatic: No symptoms reported Neurological/Psychological: No symptoms reported <DARA EMANUEL - Last Filed: 01/06/20 19:58> Physical Exam - Genitourinary External exam: Normal Speculum exam: Other - no cervix, unable to completely insert speculum Vaginal bleeding: None Bimanuel exam: Adnexal tenderness - Left <DARA EMANUEL - Last Filed: 01/06/20 19:58> - Vital signs Vitals: Temp Pulse Resp BP Pulse Ox 98.9 F 88 20 132/75 H 96 01/06/20 16:39 01/06/20 16:39 01/06/20 16:39 01/06/20 16:39 01/06/20 16:39 - Notes Notes: PHYSICAL EXAMINATION: GENERAL: Well-appearing and in no acute distress. HEAD: Atraumatic, normocephalic. EYES: sclera anicteric, conjunctiva are normal. ENT: nares patent. Moist mucous membranes. NECK: Normal range of motion, supple without lymphadenopathy LUNGS: CTAB and equal. No wheezes rales or rhonchi. HEART: Regular rate and rhythm without murmurs ABDOMEN: Soft, left lower quadrant tenderness, normal bowel sounds, + guarding. EXTREMITIES: Normal range of motion, no pitting edema. No cyanosis. BACK: No midline tenderness, no step-off or deformity. No CVA tenderness NEUROLOGICAL: Cranial nerves grossly intact. Normal speech. PSYCH: Normal mood, normal affect. SKIN: Warm, Dry, normal turgor, no rashes or lesions noted (DARA EMANUEL) Course - Laboratory Result Diagrams: 01/06/20 17:10 01/06/20 17:10 - Diagnostic Test Radiology reviewed: Reports reviewed <DARA EMANUEL - Last Filed: 01/06/20 19:58> - Laboratory Result Diagrams: 01/06/20 17:10 01/06/20 17:10 <MARIA INES BARBA - Last Filed: 01/07/20 01:48> - Re-evaluation Re-evalutation: 01/06/20 18:[address] Garza regarding patient, exam findings as well as ultrasound report. She advises outpatient follow-up in the office tomorrow although does recommend CT imaging to further evaluate mass while here in the department. She recommends CT imaging with oral and IV contrast. 01/06/20 19:58 Patient updated regarding plan of care at this time. Patient denies any needs at this time. (DARA EMANUEL) 01/07/20 CAT scan shows this is not pelvic in nature, the area in the left lower abdomen could be hernia, infected fluid, blood, etc. 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 This does not appear to be CHRISTMAS TREE GRADER in nature. I reevaluated patient, discussed with her, she is requesting additional pain medication. I will consult general surgery because of the abnormal CAT scan. I spoke with Dr. Mcwilliams, he will evaluate patient. Dr. Mcwilliams did evaluate the patient, he recommends admission to his service for exploratory surgery tomorrow morning. Patient states understanding and agreement. 01/07/20 01:47 Dr. Mcwilliams requesting COVID 19 testing, we do not have the rapid test available, he requests the longer test. (MARIA INES BARBA) - Vital Signs Vital signs: Temp Pulse Resp BP Pulse Ox 98.9 F 88 20 132/75 H 96 01/06/20 16:39 01/06/20 16:39 01/06/20 16:39 01/06/20 16:39 01/06/20 16:39 - Laboratory Laboratory results interpreted by me: 01/06/20 01/06/20 01/06/20 17:10 17:10 17:10 Hct 35.0 L Sodium 136.2 L Glucose 123 H Urine Protein 100 H Urine Ketones TRACE H Urine Urobilinogen 2.0 H Urine Ascorbic Acid 40 H Discharge <DARA EMANUEL - Last Filed: 01/06/20 19:58> - Discharge Admitting Provider: Surgicalist Unit Admitted: Surgical Floor <MARIA INES BARBA - Last Filed: 01/07/20 01:48> - Discharge Clinical Impression: Abdominal pain Qualifiers: Abdominal location: left lower quadrant Qualified Code(s): R10.32 - Left lower quadrant pain Condition: Stable Disposition: ADMITTED OBSERVATION Additional Instructions: Return immediately for any new or worsening symptoms Followup with your primary care provider, call tomorrow to make a followup appointment Follow-up with Dr. Garza at [facility] for further evaluation of the pelvic mass, call tomorrow to make a follow-up appointment Referrals: CASH GARZA MD [ACTIVE STAFF] - Follow up tomorrow [facility] [Provider Group] - Follow up tomorrow
[2020-01-06] MEDS ORDERED: NORMAL SALINE 1000 ML 1,000 ML IV ONE (18:47)
[2020-01-06] MEDS ORDERED: MORPHINE SULFATE 10 MG/ML INJ IV ONE (18:49)
[2020-01-06 19:18] LABS: RBCS (WET MOUNT) NO RBCS SEEN; T.VAGINALIS (WET MOUNT) NO TRICHOMONAS SEEN; WBCS (WET MOUNT) RARE WBCS SEEN; YEAST (WET MOUNT) NO YEAST SEEN
[2020-01-06 20:45] LABS: CHLAM PCR NOT DETECTED (NOT DETECT)
--- NOTE | 2020-01-06 22:25 | RADIOLOGY REPORT (SQ) ---
EXAM DESCRIPTION: CT abdomen and pelvis with contrast CLINICAL HISTORY: 29 years Female, LLQ pain, eval pelvic mass COMPARISON: None. TECHNIQUE: Axial images of the abdomen and pelvis were performed utilizing intravenous contrast, with sagittal and coronal reformatted images. This exam was performed according to our departmental dose-optimization program which includes use of Automated Exposure Control, adjustment of the mA and/or kV according to patient size and/or use of iterative reconstruction technique. FINDINGS: There is either a left inguinal hernia containing fluid, or a cystic lesion in the left groin, measuring approximately 8.2 x 4.5 x 3.8 cm. The fluid is somewhat dense, possibly hemorrhagic or infected fluid. This is not an adnexal lesion, as was described in the pelvic ultrasound report. 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 No evidence of bowel obstruction. The appendix appears normal. There is no significant radiographic abnormality of the liver, spleen, pancreas, adrenal glands or kidneys. No free air or free fluid. IMPRESSION: Left inguinal lesion as described. Midgut malrotation.
[2020-01-07] MEDS ORDERED: MORPHINE SULFATE 10 MG/ML INJ IV ONE (00:23)
[2020-01-07] MEDS ORDERED: ONDANSETRON HCL INJ/PF 4 MG/2 ML SDV IV PRN ×2 (01:37→15:08)
[2020-01-07] MEDS ORDERED: NORMAL SALINE 1000 ML 1,000 ML IV PRN ×2 (01:37→16:29)
--- NOTE | 2020-01-07 01:37 | PDOC H&P ---
History of Present Illness Admission Date/PCP: 01/07/2020 Patient complains of: Left groin mass with pain History of Present Illness: MATTHEW CUMMINGS is a 29 year old female, healthy, with a history of imperforate anus repaired at , mullerian agenesis, vaginal hypoplasia, who presents to the emergency room complaining of painful left groin bulge. The onset of the painful bulge is not related to exercise, straining, sneezing, or defecation. Interestingly, the patient reports that the swelling comes and goes throughout the month following the pattern of menstrual cycle even though she has no menses due to the uterine agenesis. A CAT scan of the abdomen and pelvis with IV and oral contrast has been done today and reveals the presence of a fluid-filled mass in the left groin not connected to bladder or bowel. 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 Past Surgical History Past Surgical History: Reports: Hysterectomy Social History Lives with: Family Smoking Status: Never Smoker Family History Family History: Reviewed & Not Pertinent Parental Family History Reviewed: No Children Family History Reviewed: No Sibling(s) Family History Reviewed.: No Medication/Allergy Home Medications: Azithromycin [Zithromax 250 mg Tablet] 250 mg PO DAILY 4 Days #4 tablet 07/07/19 Albuterol Sulfate [Proair HFA Inhalation Aerosol 8.5 gm MDI] 2 puff IH Q4H PRN #1 mdi 10/31/19 Allergies/Adverse Reactions: No Known Allergies Allergy (Verified 01/06/20 19:35) Physical Exam Vital Signs: Temp Pulse Resp BP Pulse Ox 98.9 F 88 20 132/75 H 96 01/06/20 16:39 01/06/20 16:39 01/06/20 16:39 01/06/20 16:39 01/06/20 16:39 Intake & Output 01/05/20 01/06/20 01/07/20 06:59 06:59 06:59 Intake Total 1000 Balance 1000 Weight 77.1 kg General appearance: PRESENT: no acute distress, obese, well-developed Head exam: PRESENT: atraumatic, normocephalic Eye exam: PRESENT: EOMI Mouth exam: PRESENT: moist, neck supple Neck exam: PRESENT: full ROM Respiratory exam: PRESENT: clear to auscultation christopher Cardiovascular exam: PRESENT: RRR GI/Abdominal exam: PRESENT: normal bowel sounds, soft, other - Bilateral upper abdominal transverse surgical scars well healed: Rectal exam: PRESENT: deferred Gentrourinary exam: PRESENT: other - Left groin = presence of tender mass, nonreducible, no skin changes Extremities exam: PRESENT: full ROM Musculoskeletal exam: PRESENT: full ROM Neurological exam: PRESENT: alert, awake Psychiatric exam: PRESENT: anxious, appropriate affect Skin exam: PRESENT: warm Results Laboratory Results: 01/06/20 17:10 01/06/20 17:10 01/06/20 01/06/20 01/06/20 17:10 17:10 17:10 WBC 9.7 RBC 4.12 Hgb 12.5 Hct 35.0 L MCV 85 MCH 30.3 MCHC 35.7 RDW 13.5 Plt Count 307 Seg Neutrophils % 59.1 Sodium 136.2 L Potassium 4.2 Chloride 104 Carbon Dioxide 27 Anion Gap 5 BUN 14 Creatinine 0.82 Est GFR ( Amer) > 60 Glucose 123 H Calcium 9.3 Total Bilirubin 0.4 AST 20 Alkaline Phosphatase 75 Total Protein 7.2 Albumin 4.3 Lipase 38.3 Urine Color YELLOW Urine Appearance SLIGHTLY-CLOUDY Urine pH 6.0 Ur Specific Clemons 1.042 Urine Protein 100 H Urine Glucose (UA) NEGATIVE Urine Ketones TRACE H Urine Blood NEGATIVE Urine Nitrite NEGATIVE Ur Leukocyte Esterase NEGATIVE Urine WBC (Auto) 1 Urine RBC (Auto) 7 Impressions: Abdomen/Pelvis CT 01/06/20 00:00 IMPRESSION: Left inguinal lesion as described. Midgut malrotation. Pelvis Ultrasound 01/06/20 16:52 IMPRESSION: 1. The patient has a known history of Muellerian agenesis. 2. The left ovary is not visualized sonographically. A complex large mass in the left adnexal region as above. Differential diagnosis includes dilated complex hydrosalpinx, possible abscess, as well as other etiologies. Correlation with RAG SORTER consult suggested. Assessment & Plan - Diagnosis (1) Mass of left inguinal region Is this a current diagnosis for this admission?: Yes (2) Mullerian agenesis Is this a current diagnosis for this admission?: Yes (3) Imperforate anus Is this a current diagnosis for this admission?: Yes - Time Anticipated Discharge Disposition: Home, Self Care Anticipated Discharge Timeframe: within 24 hours - Plan Summary Plan Summary: Assessment: Left groin exam reveals the presence of tender mass, nonreducible, no skin changes As per the CT scan abdomen pelvis done today, this mass is not related to bladder, bowel, and does not appear to be a lymph node 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 after midnight Left groin exploration, possible repair of inguinal hernia with mesh tomorrow Procedure, benefits, complications, including the possibility of bleeding, infection, injury to internal organs, blood clots, and have been discussed with the patient, her questions answered, she understands all the above, and she decides to proceed
[2020-01-07] MEDS: FAMOTIDINE INJ/PF 20 MG/2 ML SDV IV SCH ×4 (02:36→23:48)
[2020-01-07] MEDS ORDERED: PHENYLEPHRINE HCL INJ/PF 10 MG/1 ML SDV ONE (05:00)
[2020-01-07] MEDS: MORPHINE SULFATE 10 MG/ML INJ IV PRN ×3 (09:00→23:32)
[2020-01-07] MEDS ORDERED: FENTANYL CITRATE INJ/PF 250 MCG/5 ML AMPULE ONE (13:30)
[2020-01-07] MEDS ORDERED: PROPOFOL INJ 200 MG/20 ML VIAL IV ONE ×2 (13:30→15:44)
[2020-01-07] MEDS ORDERED: KETOROLAC TROMETHAMINE 60 MG/2 ML SDV ONE (13:30)
[2020-01-07] MEDS ORDERED: MIDAZOLAM 2 MG/2 ML INJ ONE (13:30)
[2020-01-07] MEDS ORDERED: ONDANSETRON HCL INJ/PF 4 MG/2 ML SDV ONE (13:30)
[2020-01-07] MEDS ORDERED: DEXAMETHASONE SOD PHOSPHATE INJ 4 MG/1 ML VIAL ONE (13:30)
[2020-01-07] MEDS ORDERED: BUPIVACAINE HCL 0.25% /EPINEPHRINE INJ/PF 30 ML SDV ONE (13:33)
[2020-01-07] MEDS ORDERED: CEFAZOLIN INJ 1 GM VIAL ONE (14:27)
[2020-01-07] MEDS ORDERED: MEPERIDINE HCL/PF INJ 25 MG/1 ML DISP.SYRIN IV PRN (15:08)
[2020-01-07] MEDS ORDERED: FENTANYL CITRATE INJ/PF 100 MCG/2 ML AMPUL IV PRN ×2 (15:08)
[2020-01-07] MEDS ORDERED: PROMETHAZINE HCL INJ 25 MG/1 ML VIAL IV PRN (15:08)
[2020-01-07] MEDS ORDERED: DIPHENHYDRAMINE HCL 50 MG/ML VIAL IV PRN (15:08)
--- NOTE | 2020-01-07 16:29 | Operative Report ---
Operative Report DATE OF SURGERY: 01/07/20 PREOPERATIVE DIAGNOSIS: Left groin mass POSTOPERATIVE DIAGNOSIS: Left indirect inguinal hernia OPERATION: Left groin exploration, left tubo-ovariectomy, left indirect inguinal herniorrhaphy with mesh and plug SURGEON: BEN SHEA 1ST SAMPLE BOX MAKER: HECTOR ISAAC ANESTHESIA: Spinal - Last 16 september also half percent Marcaine with epinephrine TISSUE REMOVED OR ALTERED: Left tubal ovarian complex COMPLICATIONS: None ESTIMATED BLOOD LOSS: Negligible INTRAOPERATIVE FINDINGS: Left indirect inguinal hernia containing left tubo- ovarian complex PROCEDURE: Procedure was done in the operating room, the patient was in a supine position, spinal anesthesia induced by the anesthesiologist, the lef groin was prepped and draped in the usual fashion. A curvilinear incision was made just below the ilioinguinal ligament, the incision was deepened through subcutaneous fat and Emily's fascia using Bovie with exposure of the external oblique fascia which was opened with scissors proximally and distally. Examination of the inguinal floor revealed the presence of a mass inside the inguinal cord. Therefore the mass was identified as an indirect inguinal hernia. The was gently dissected off the surrounding structures and elevated off the floor. The cord was then open and the internal inguinal hernia sac was identified and dissected. This was then open, and the left tubo-ovarian complex was identified and pushed back inside and delivered outside the peritoneal cavity through the internal inguinal ring. When this could not be accomplished anymore, sequential clamps were applied to the tube and the mesentery the tubo-ovarian complex was divided with scissors and sent to pathology. The stump of the tube and mesentery was sequentially suture-ligated with 0 Vicryl sutures to obtain hemostasis, the stump was then pushed into the peritoneal cavity through the internal inguinal ring. The sac was then closed with a transfixing silk suture placed through the neck of the sac and pushed inside the peritoneal cavity. The internal inguinal ring was closed with a polypropylene mesh plug which was inserted using an Allis clamp and suture ligated with a [id number] 0 Prolene suture. The floor was reinforced with a polypropylene flat mesh which was secured proximally and distally with individual Prolene sutures. The area was irrigated with normal saline, the external oblique and Emily fascias were sutured sequentially using 0 Vicryl running suture. Subcutaneous tissue was closed with running Vicryl subcuticular suture. Dermabond was applied followed by sterile dressings. The patient agreed the procedure well and transferred to the recovery room in satisfactory conditions.
[2020-01-07] MEDS ORDERED: ACETAMINOPHEN 1,000 MG/100 ML RTUPB IV ONE (16:59)
[2020-01-07] MEDS: KETOROLAC TROMETHAMINE INJ/PF 30 MG/1 ML SDV IV SCH (20:18)
[2020-01-08] MEDS: KETOROLAC TROMETHAMINE INJ/PF 30 MG/1 ML SDV IV SCH ×2 (03:38→08:26)
[2020-01-08 07:25] LABS: ABSOLUTE LYMPHOCYTES (AUTO) 1.7 10^3/uL (0.5-4.7); ABSOLUTE MONOCYTES (AUTO) 1.3 10^3/uL (0.1-1.4); ABSOLUTE NEUT (AUTO) 15.5 10^3/uL (1.7-8.2); BASOPHILS % (AUTO) 0.2 % (0-2); HEMATOCRIT 35.9 % (36.0-47.0); HEMOGLOBIN 12.6 g/dL (12.0-15.5); LYMPHOCYTES % (AUTO) 9.4 % (13-45); MEAN CORPUSCULAR HEMOGLOBIN 29.4 pg (27.0-33.4); MEAN CORPUSCULAR VOLUME 84 fl (80-97); MONOCYTES % (AUTO) 6.9 % (3-13); PLATELET COUNT 339 10^3/uL (150-450); RED BLOOD COUNT 4.28 10^6/uL (3.72-5.28); RED CELL DISTRIBUTION WIDTH 13.4 % (11.5-14.0); SEGMENTED NEUTROPHILS % (AUTO) 83.5 % (42-78); TOTAL CELLS COUNTED % (AUTO) 100 %; WHITE BLOOD COUNT 18.5 10^3/uL (4.0-10.5)
[2020-01-08 07:44] LABS: ANION GAP 10 (5-19); BLOOD UREA NITROGEN 8 mg/dL (7-20); CALCIUM 9.3 mg/dL (8.4-10.2); CARBON DIOXIDE 25 mmol/L (22-30); CHLORIDE 104 mmol/L (98-107); GLUCOSE 111 mg/dL (75-110); POTASSIUM 4.7 mmol/L (3.6-5.0)
[2020-01-08] MEDS: FAMOTIDINE INJ/PF 20 MG/2 ML SDV IV SCH (10:24)
--- NOTE | 2020-01-08 12:00 | PDOC DISCHARGE SUMMARY ---
General - Admit/Disc Date/PCP Admission Date/Primary Care Provider: 01/07/20 01:50 Discharge Date: 01/08/20 - Discharge Diagnosis Final Diagnosis: Left inguinal hernia containing tube and ovary. - Assessment Summary: This is a 29-year-old female who presented to the hospital with a lump in her left groin and pain. She was felt to have an inguinal hernia, and was taken to the operating room for surgical intervention. The left groin was opened and explored. She was found to have a hernia defect, with the left tube and ovary incarcerated within it. The patient underwent excision/removal of the left tube and ovary with repair of the left inguinal hernia. The patient did well on postoperative day #1. She was ambulating and tolerating a diet. I have encouraged her to maintain lifting restrictions for 6 weeks after surgery. She may eat a regular diet. She may shower starting tomorrow. At this time, it is felt that she has reached maximal hospital benefit and is fit for discharge. - Additional Information Resuscitation Status: Full Code Discharge Diet: As Tolerated Discharge Activity: Balance Activity w/Rest, No Lifting Over 10 Pounds, No Lifting/Push/Pulling Referrals: [facility] [Provider Group] - Follow up tomorrow CASH GARZA MD [ACTIVE STAFF] - Follow up tomorrow Prescriptions: Hydrocodone/Acetaminophen [[place] 5-325 mg Tablet] 1 tab PO Q6HP PRN #20 tablet PRN Reason: For Pain Home Medications: Albuterol Sulfate [Proair HFA Inhalation Aerosol 8.5 gm MDI] 2 puff IH Q4HP PRN 01/07/20 Hydrocodone/Acetaminophen [[place] 5-325 mg Tablet] 1 tab PO Q6HP PRN #20 tablet 01/08/20 Additional Information: Discharge home. Diet as tolerated. Activity: No lifting greater than 10 pounds x 6 weeks. Okay to shower starting tomorrow. Follow-up with [facility] in 7 to 10 days. [place] 5/325 mg p.o. every 6 hours as needed for pain. History of Present Illiness History of Present Illness: MATTHEW CUMMINGS is a 29 year old female Physical Exam Vital Signs: Temp Pulse Resp BP Pulse Ox 98.7 F 78 18 105/56 L 98 01/08/20 08:31 01/08/20 08:01 01/08/20 08:01 01/08/20 08:01 01/08/20 08:01 Intake & Output 01/07/20 01/08/20 01/09/20 06:59 06:59 06:59 Intake Total 1000 2049 Output Total 15 Balance 999 2034 Weight 77.1 kg 76 kg Results Laboratory Results: WBC 18.5 10^3/uL (4.0-10.5) H 01/08/20 07:02 RBC 4.28 10^6/uL (3.72-5.28) 01/08/20 07:02 Hgb 12.6 g/dL (12.0-15.5) 01/08/20 07:02 Hct 35.9 % (36.0-47.0) L 01/08/20 07:02 MCV 84 fl (80-97) 01/08/20 07:02 MCH 29.4 pg (27.0-33.4) 01/08/20 07:02 MCHC 35.0 g/dL (32.0-36.0) 01/08/20 07:02 RDW 13.4 % (11.5-14.0) 01/08/20 07:02 Plt Count 339 10^3/uL (150-450) 01/08/20 07:02 Lymph % (Auto) 9.4 % (13-45) L 01/08/20 07:02 [place] % (Auto) 6.9 % (3-13) 01/08/20 07:02 Eos % (Auto) 0.0 % (0-6) 01/08/20 07:02 Baso % (Auto) 0.2 % (0-2) 01/08/20 07:02 Absolute Neuts (auto) 15.5 10^3/uL (1.7-8.2) H 01/08/20 07:02 Absolute Lymphs (auto) 1.7 10^3/uL (0.5-4.7) 01/08/20 07:02 Absolute Monos (auto) 1.3 10^3/uL (0.1-1.4) 01/08/20 07:02 Absolute Eos (auto) 0.0 10^3/uL (0.0-0.6) 01/08/20 07:02 Absolute Basos (auto) 0.0 10^3/uL (0.0-0.2) 01/08/20 07:02 Seg Neutrophils % 83.5 % (42-78) H 01/08/20 07:02 Sodium 139.1 mmol/L (137-145) 01/08/20 07:02 Potassium 4.7 mmol/L (3.6-5.0) 01/08/20 07:02 Chloride 104 mmol/L (98-107) 01/08/20 07:02 Carbon Dioxide 25 mmol/L (22-30) 01/08/20 07:02 Anion Gap 10 (5-19) 01/08/20 07:02 BUN 8 mg/dL (7-20) 01/08/20 07:02 Creatinine 0.60 mg/dL (0.52-1.25) 01/08/20 07:02 Est GFR ( Amer) > 60 (>60) 01/08/20 07:02 Est GFR (MDRD) Non-Af > 60 (>60) 01/08/20 07:02 Glucose 111 mg/dL (75-110) H 01/08/20 07:02 Calcium 9.3 mg/dL (8.4-10.2) 01/08/20 07:02 Total Bilirubin 0.4 mg/dL (0.2-1.3) 01/06/20 17:10 Direct Bilirubin 0.2 mg/dL (0.0-0.4) 01/06/20 17:10 Neonat Total Bilirubin Not Reportable 01/06/20 17:10 Neonat Direct Bilirubin Not Reportable 01/06/20 17:10 Neonat Indirect Bili Not Reportable 01/06/20 17:10 AST 20 U/L (14-36) 01/06/20 17:10 ALT 18 U/L (<35) 01/06/20 17:10 Alkaline Phosphatase 75 U/L (38-126) 01/06/20 17:10 Total Protein 7.2 g/dL (6.3-8.2) 01/06/20 17:10 Albumin 4.3 g/dL (3.5-5.0) 01/06/20 17:10 Lipase 38.3 U/L (23-300) 01/06/20 17:10 Beta HCG, Quant < 2.39 mIU/mL (0.0-6.15) 01/06/20 17:10 Total Beta HCG NEGATIVE (NEGATIVE) 01/06/20 17:10 Urine Color YELLOW 01/06/20 17:10 Urine Appearance SLIGHTLY-CLOUDY 01/06/20 17:10 Urine pH 6.0 (5.0-9.0) 01/06/20 17:10 Ur Specific [place] 1.042 01/06/20 17:10 Urine Protein 100 mg/dL (NEGATIVE) H 01/06/20 17:10 Urine Glucose (UA) NEGATIVE mg/dL (NEGATIVE) 01/06/20 17:10 Urine Ketones TRACE mg/dL (NEGATIVE) H 01/06/20 17:10 Urine Blood NEGATIVE (NEGATIVE) 01/06/20 17:10 Urine Nitrite NEGATIVE (NEGATIVE) 01/06/20 17:10 Urine Bilirubin NEGATIVE (NEGATIVE) 01/06/20 17:10 Urine Urobilinogen 2.0 mg/dL (<2.0) H 01/06/20 17:10 Ur Leukocyte Esterase NEGATIVE (NEGATIVE) 01/06/20 17:10 Urine WBC (Auto) 1 /HPF 01/06/20 17:10 Urine RBC (Auto) 7 /HPF 01/06/20 17:10 Squamous Epi Cells Auto 4 /HPF 01/06/20 17:10 Urine Mucus (Auto) MANY /LPF 01/06/20 17:10 Urine Ascorbic Acid 40 (NEGATIVE) H 01/06/20 17:10 Trichomonas (Wet Prep) NO TRICHOMONAS SEEN 01/06/20 18:40 Vaginal WBC RARE WBCS SEEN 01/06/20 18:40 Vaginal RBC NO RBCS SEEN 01/06/20 18:40 Vaginal Yeast NO YEAST SEEN 01/06/20 18:40 Chlamydia DNA (PCR) NOT DETECTED (NOT DETECT) 01/06/20 18:40 COVID-19 Source NASOPHARYNGEAL 01/07/20 01:57 COVID-19 (BRANDI) NOT DETECTED 01/07/20 01:57 N.gonorrhoeae DNA (PCR) NOT DETECTED (NOT DETECT) 01/06/20 18:40 Impressions: Abdomen/Pelvis CT 01/06/20 00:00 IMPRESSION: Left inguinal lesion as described. Midgut malrotation. Pelvis Ultrasound 01/06/20 16:52 IMPRESSION: 1. The patient has a known history of Muellerian agenesis. 2. The left ovary is not visualized sonographically. A complex large mass in the left adnexal region as above. Differential diagnosis includes dilated complex hydrosalpinx, possible abscess, as well as other etiologies. Correlation with PROCESS INSPECTOR consult suggested.
[2020-01-08 14:24] VITALS: BP 135/89
== END 2020-01-08 14:48 | disposition home or self-care (01) ==
LOC: ER 16:35 → EH 01-07 01:50 → 2N 01-07 17:20
PROVIDERS: ATTEND Surgery
DX: K40.30 Unilateral inguinal hernia, with obstruction, without gangrene, not specified as recurrent (principal); D28.2 Benign neoplasm of uterine tubes and ligaments; N83.12 Corpus luteum cyst of left ovary; E66.9 Obesity, unspecified; Q51.0 Agenesis and aplasia of uterus; Q43.3 Congenital malformations of intestinal fixation; Z90.710 Acquired absence of both cervix and uterus; Z87.738 Personal history of other specified (corrected) congenital malformations of digestive system; Z03.818 Encounter for observation for suspected exposure to other biological agents ruled out
CPT/HCPCS: 49507; 58720; 96376; 99285; 96375; 96365; 96367; 36415 ×2; 87210; 84702; 83690; 85025 ×2; 87635; 80048; 80053; 81001; 87491; 87591; 88305 ×2; 76856; 93976; 74177; 94799; 00400; G0378 ×3; C1781; J2250; J3490; J0690; J1100; J1885 ×3; S0119; J3010; J2270 ×2; J2370; J2405; J7030 ×3; J2704; S0028 ×2; J0131; C9803; 400